=== PATIENT | female | born 1965 | race Caucasian/White ===

== ENCOUNTER 2016-09-17 18:53 | Emergency (ER) | payer SELFPAY ==
[~2016-09-17] VITALS: Ht 177.8 cm; Wt 81.0 kg
[2016-09-17 19:02] VITALS: Ht 177.8 cm; Wt 81.0 kg
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
[2016-09-17] MEDS ORDERED: HYDR-906 PO (20:34)
[2016-09-17] MEDS ORDERED: IBUP-1542 PO (20:34)
--- NOTE | 2016-09-17 21:59 | RADRPT ---
PROCEDURE: Lumbar spine. CLINICAL INDICATION: Low back pain. TECHNIQUE: Three views including AP, lateral and cone-down lateral view of the lumbar spine were obtained. COMPARISON: None. FINDINGS: There is no acute fracture or subluxation. Lumbar vertebral body heights and alignment are within n ormal limits. Intervertebral disk spaces are within normal limits. The posterior elements are unre markable. IMPRESSION: No evidence of fracture or subluxation. .Jaren Joshi MD, MD Date Time Electronically viewed and signed by .Jaren Joshi MD, on 09/17/2016 21:59 .T/
--- NOTE | 2016-09-17 21:59 | RADRPT ---
PROCEDURE: Soft tissue neck. CLINICAL INDICATION: Swelling. TECHNIQUE: Two views including AP and lateral views of the soft tissue neck were obtained. COMPARISON: None. FINDINGS: The airways are patent. The epiglottis is not enlarged. Prevertebral soft tissues are within ramon l limits. There is no radiopaque foreign body or abnormal calcification identified. There is mild reversal of the cervical lordosis. There are small anterior marginal osteophytes pres ent from C5 through C7. IMPRESSION: Mild cervical spondylosis. Otherwise unremarkable soft tissue neck. .Jaren Joshi MD, MD Date Time Electronically viewed and signed by .Jaren Joshi MD, on 09/17/2016 21:58 .T/
[2016-09-17] MEDS ORDERED: ACET325T33 PO (22:40)
[2016-09-17 22:48] VITALS: BP 174/95; PULSE 68; RESP 20; TEMP 98.5
== END 2016-09-17 22:48 | disposition home or self-care (01) ==
LOC: FTE 18:53
DX: S39.92XA Unspecified injury of lower back, initial encounter (principal); S19.9XXA Unspecified injury of neck, initial encounter; F17.210 Nicotine dependence, cigarettes, uncomplicated; V47.0XXA Car driver injured in collision with fixed or stationary object in nontraffic accident, initial encounter
CPT/HCPCS: 70360; 72100

== ENCOUNTER 2017-01-05 19:41 | Emergency (ER) | payer SELFPAY ==
[~2017-01-05] VITALS: Ht 177.8 cm; Wt 81.0 kg
[~2017-01-05 19:41] MED LIST: ACET325T33 PO; HYDR-906 PO; IBUP-1542 PO
[2017-01-05 19:43] VITALS: Ht 177.8 cm; Wt 81.0 kg
== END 2017-01-05 20:14 | disposition left against medical advice (07) ==
LOC: FTE 19:41 → E/R 20:14
DX: Z53.21 Procedure and treatment not carried out due to patient leaving prior to being seen by health care provider (principal)